=== PATIENT | male | born 1960 | race Caucasian/White ===

== ENCOUNTER → 2018-07-23 | Outpatient (CLI) | payer BC ==
--- NOTE | 2018-07-23 13:21 | US ---
EXAMINATION TYPE: US venous doppler duplex LE RT DATE OF EXAM: 07/23/2018 12:24 PM COMPARISON: NONE CLINICAL HISTORY: I80.9 phlebitis , M25.461 Effusion, right knee. Pt states recent fluid removal and Cortisone shot in right knee/ right leg pain SIDE PERFORMED: Right TECHNIQUE: The lower extremity deep venous system is examined utilizing real time linear array sonog louise with graded compression, doppler sonography and color-flow sonography. VESSELS IMAGED: External Iliac Vein (EIV) Common Femoral Vein Deep Femoral Vein Greater Saphenous Vein * Femoral Vein Popliteal Vein Small Saphenous Vein * Proximal Calf Veins (* superficial vessels) Right Leg: Negative for DVT Results called to Marcella at [facility] at time of exam Grayscale, color doppler, spectral doppler imaging performed of the deep veins of the right lower ext remity. There is normal flow, compressibility, vascular waveforms. IMPRESSION: No ultrasound evidence for acute DVT in the right lower extremity.
== END ==
LOC: RADUSWWP 12:03
PROVIDERS: ATTEND Orthopaedic Surgery
DX: M25.561 Pain in right knee (principal)

== ENCOUNTER 2018-10-25 11:09 | Inpatient (IN) | payer BC ==
[2018-10-25] MEDS ORDERED: ASPIRIN 81 MG PO STA (11:27)
--- NOTE | 2018-10-25 11:30 | ED ---
General Adult HPI - General Chief complaint: Shortness of Breath Stated complaint: Hx BRONCHITIS NOT GETTING BETTER Time Seen by Provider: 10/25/18 11:19 Source: patient, family Mode of arrival: ambulatory Limitations: no limitations - History of Present Illness Initial comments: Patient is a 58-year-old male with a history of high blood pressure and high cholesterol who presents with a chief complaint of shortness of breath. This been going on for 1 week. The patient says he has been evaluated multiple times at urgent care, diagnosed with bronchitis, given multiple rounds beta blockers for tachycardia. Patient states the symptoms are not improving despite treatment. He states he is exertionally short of breath, he states he would not be able to walk up a flight of stairs while having her take a break. There are no alleviating factors. Timing is constant. He does admits to chest discomfort with deep breathing - Related Data Home Medications Medication Instructions Recorded Confirmed Levofloxacin [Levaquin] 500 mg PO DAILY 10/25/18 10/25/18 Lisinopril-Hctz 10-12.5 mg 1 tab PO DAILY 10/25/18 10/25/18 [Zestoretic 10-12.5] Metoprolol Succinate (ER) [Toprol 50 mg PO DAILY 10/25/18 10/25/18 Xl] guaiFENesin-DM 600/30MG [Mucinex 1 tab PO Q12HR PRN 10/25/18 10/25/18 Dm] methylPREDNISolone Dose Pack See Taper PO DAILY 10/25/18 10/25/18 [Medrol Dose Pack] Allergies Allergy/AdvReac Type Severity Reaction Status Date / Time Penicillins Allergy Unknown Verified 10/25/18 11:34 Review of Systems ROS Statement: Those systems with pertinent positive or pertinent negative responses have been documented in the HPI. ROS Other: All systems not noted in ROS Statement are negative. Respiratory: Reports: dyspnea Cardiovascular: Reports: dyspnea on exertion Past Medical History Past Medical History: Hyperlipidemia, Hypertension History of Any Multi-Drug Resistant Organisms: None Reported Past Surgical History: Hernia Repair Past Psychological History: No Psychological Hx Reported Smoking Status: Former smoker Past Alcohol Use History: Daily Past Drug Use History: None Reported General Exam Limitations: no limitations General appearance: alert, in no apparent distress Head exam: Present: atraumatic, normocephalic Eye exam: Present: normal appearance, PERRL ENT exam: Present: normal exam Neck exam: Present: normal inspection Respiratory exam: Present: normal lung sounds bilaterally. Absent: respiratory distress, wheezes Cardiovascular Exam: Present: normal rhythm, tachycardia GI/Abdominal exam: Present: soft. Absent: distended, tenderness Rectal exam: Present: deferred Extremities exam: Present: normal inspection. 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 On initial evaluation, vitals showed tachycardia but otherwise stable. Patient is in no acute distress. He'll be evaluated basic labs including cardiac enzymes, EKG, computed tomography scan of the chest to rule out pulmonary embolism. Patient placed on 2 L of oxygen for comfort, he was given an aspirin. EKG performed at 1137 shows sinus tachycardia with a rate of 130 bpm, there is a right bundle branch block present, segments are otherwise within normal limits, no acute findings of ischemia present. No previous EKG to compare to. 12:38 PM Lab evaluation this patient is remarkable for a potassium of 5.5, no EKG T wave abnormalities identified. BNP is elevated over 5000, initial troponin is negative. Currently pending CT evaluation of the chest for PE. Remains tachycardic on reevaluation. 12:52 PM Computed tomography scan does not show any evidence of pulmonary embolism. I reevaluation, the patient still tachycardic but remained stable. At this time, he'll be started on Cardizem for rate control. He'll be admitted for further cardiac evaluation. Results discussed with him and his , they are agreeable with the care plan. Case discussed with Dr. Ramos excepts admission with consult to cardiology. Leonardo' Criteria for Pulmonary Embolism from [email or web address] on 10/25/2018 All calculations should be rechecked by clinician prior to use RESULT SUMMARY: 4.5 points Moderate risk group: 16.2% chance of PE in an ED population. INPUTS: Clinical signs and symptoms of DVT > 0 = No PE is #1 diagnosis OR equally likely > 3 = Yes Heart rate > 100 > 1.5 = Yes Immobilization at least 3 days OR surgery in the previous 4 weeks > 0 = No Previous, objectively diagnosed PE or DVT > 0 = No Hemoptysis > 0 = No Malignancy w/ treatment within 6 months or palliative > 0 = No - Lab Data Result diagrams: 10/25/18 11:39 10/25/18 11:39 Lab Results 10/25/18 10/25/18 10/25/18 Range/Units 11:39 11:39 11:39 WBC 10.6 (3.8-10.6) k/uL RBC 4.46 (4.30-5.90) m/uL Hgb 14.4 (13.0-17.5) gm/dL Hct 43.7 (39.0-53.0) % MCV 98.0 (80.0-100.0) fL MCH 32.2 (25.0-35.0) pg MCHC 32.9 (31.0-37.0) g/dL RDW 14.7 (11.5-15.5) % Plt Count 205 (150-450) k/uL Neutrophils % 75 % Lymphocytes % 16 % Monocytes % 6 % Eosinophils % 2 % Basophils % 0 % Neutrophils # 7.9 H (1.3-7.7) k/uL Lymphocytes # 1.7 (1.0-4.8) k/uL Monocytes # 0.6 (0-1.0) k/uL Eosinophils # 0.2 (0-0.7) k/uL Basophils # 0.0 (0-0.2) k/uL PT (9.0-12.0) sec INR (<1.2) Sodium 140 (137-145) mmol/L Potassium 5.5 H (3.5-5.1) mmol/L Chloride 110 H (98-107) mmol/L Carbon Dioxide 20 L (22-30) mmol/L Anion Gap 10 mmol/L BUN 35 H (9-20) mg/dL Creatinine 0.87 (0.66-1.25) mg/dL Est GFR (CKD-EPI)AfAm >90 (>60 ml/min/1.73 sqM) Est GFR (CKD-EPI)NonAf >90 (>60 ml/min/1.73 sqM) Glucose 135 H (74-99) mg/dL Calcium 9.0 (8.4-10.2) mg/dL Troponin I (0.000-0.034) ng/mL NT-Pro-B Natriuret Pep pg/mL Blood Type O Positive Blood Type Recheck CABO Indicated Antibody Screen NEGATIVE Spec Expiration Date 10/28/2018 - 233810/25/18 10/25/18 10/25/18 Range/Units 11:39 11:39 11:39 WBC (3.8-10.6) k/uL RBC (4.30-5.90) m/uL Hgb (13.0-17.5) gm/dL Hct (39.0-53.0) % MCV (80.0-100.0) fL MCH (25.0-35.0) pg MCHC (31.0-37.0) g/dL RDW (11.5-15.5) % Plt Count (150-450) k/uL Neutrophils % % Lymphocytes % % Monocytes % % Eosinophils % % Basophils % % Neutrophils # (1.3-7.7) k/uL Lymphocytes # (1.0-4.8) k/uL Monocytes # (0-1.0) k/uL Eosinophils # (0-0.7) k/uL Basophils # (0-0.2) k/uL PT 12.9 H (9.0-12.0) sec INR 1.3 H (<1.2) Sodium (137-145) mmol/L Potassium (3.5-5.1) mmol/L Chloride (98-107) mmol/L Carbon Dioxide (22-30) mmol/L Anion Gap mmol/L BUN (9-20) mg/dL Creatinine (0.66-1.25) mg/dL Est GFR (CKD-EPI)AfAm (>60 ml/min/1.73 sqM) Est GFR (CKD-EPI)NonAf (>60 ml/min/1.73 sqM) Glucose (74-99) mg/dL Calcium (8.4-10.2) mg/dL Troponin I 0.027 (0.000-0.034) ng/mL NT-Pro-B Natriuret Pep 5530 pg/mL Blood Type Blood Type Recheck Antibody Screen Spec Expiration Date Disposition Clinical Impression: Dyspnea on exertion, Elevated brain natriuretic peptide (BNP) level, Sinus tachycardia, LBBB (left bundle branch block) Disposition: ADMITTED IP TO THIS HOSP Condition: Fair Is patient prescribed a controlled substance at d/c from ED?: No Referrals: Ozzie Corbin DO [Primary Care Provider] - 1-2 days Decision to Admit Reason: Admit from EC - Out of Hospital Transfer - Req. Specs Out of Hospital Transfer - Requested Specifics: Telemetry Unit
[2018-10-25 11:49] LABS: Basophils % (A) 0 %; Eosinophils # (A) 0.2 k/uL (0-0.7); Eosinophils % (A) 2 %; HCT 43.7 % (39.0-53.0); HGB 14.4 gm/dL (13.0-17.5); Lymphocytes # (A) 1.7 k/uL (1.0-4.8); Lymphocytes % (A) 16 %; MCH 32.2 pg (25.0-35.0); MCHC 32.9 g/dL (31.0-37.0); Mean Platelet Volume 9.2; Monocytes # (A) 0.6 k/uL (0-1.0); Monocytes % (A) 6 %; Neutrophils # (A) 7.9 k/uL (1.3-7.7); Neutrophils % (A) 75 %; Platelet Count 205 k/uL (150-450); RBC 4.46 m/uL (4.30-5.90); RDW 14.7 % (11.5-15.5); WBC 10.6 k/uL (3.8-10.6)
[2018-10-25 11:54] LABS: INR 1.3 (<1.2); Prothrombin Time 12.9 sec (9.0-12.0)
[2018-10-25 11:56] LABS: African American GFR (CKD) >90 (>60 ml/min/1.73 sqM); Anion Gap 10 mmol/L; Blood Urea Nitrogen 35 mg/dL (9-20); Carbon Dioxide 20 mmol/L (22-30); Chloride 110 mmol/L (98-107); Glucose 135 mg/dL (74-99); Potassium 5.5 mmol/L (3.5-5.1); Sodium 140 mmol/L (137-145)
--- NOTE | 2018-10-25 12:42 | CT ---
EXAMINATION TYPE: CT chest angio for PE DATE OF EXAM: 10/25/2018 COMPARISON: None HISTORY: SOB CT DLP: 609.5 mGycm Automated exposure control for dose reduction was used. CONTRAST: CT Chest for pulmonary embolism performed with with IV Contrast, patient injected with 100 mL of Isov ue 300. FINDINGS: LUNGS: Groundglass subsegmental changes bilaterally most typical of atelectasis. No focal pneumonia o r overt failure. No pleural effusion. MEDIASTINUM: No diagnostic evidence of pulmonary. Atherosclerotic change aorta. Cardiomegaly and smal l pericardial effusion. Coronary artery mild calcification seen proximal ascending aorta measures 4.4 cm compatible with mild aneurysmal dilation. OTHER: Hypertrophic change of the vertebral column. IMPRESSION: 1. Cardiomegaly with no CT evidence of pulmonary a most. 2 groundglass subsegmental changes correlate for atelectasis. 3. Small pericardial effusion. 4. Coronary artery and aortic calcification. Ascending aorta measures 4.4 cm compatible with mild ane urysmal dilation.
[2018-10-25] MEDS ORDERED: DILTIAZEM 5 MG/ML 5 ML VIAL IVP STA (12:50)
[2018-10-25] MEDS ORDERED: NALOXONE 0.4 MG/ML 1 ML VIAL IV PRN (12:59)
[2018-10-25] MEDS ORDERED: DILTIAZEM 125 MG in SODIUM CHLORIDE 0.9% 100 ML IV SCH ×2 (13:00→17:00)
[2018-10-25] MEDS ORDERED: HEPARIN SODIUM,PORCINE 5,000 UNIT/ML 1 ML VIAL IV ONE (14:17)
[2018-10-25] MEDS ORDERED: HEPARIN SODIUM,PORCINE 5,000 UNIT/ML 1 ML VIAL IV PRN (14:17)
[2018-10-25] MEDS: HEPARIN SOD,PORK IN 0.45% NACL 25,000 UNIT in 0.45% NACL 1 250ML.BAG IV SCH (14:51)
[2018-10-25] MEDS ORDERED: SODIUM CHLORIDE 0.9% 1,000 ML IV SCH (15:00)
--- NOTE | 2018-10-25 15:20 | P.HPIM ---
History of Present Illness H&P Date: 10/25/18 58 years old male with past medical history of hypertension, hyperlipidemia comes in with worsening shortness of breath associated with night sweats and palpitations. Patient states he was feeling unwell for the past 1 month with worsening shortness of breath in the past 1 week. He has been to the urgent care twice in the past 3 days and has been treated for bronchitis with a Z-Terry and Medrol Dosepak. Patient was noted to be in sinus tachycardia. Metoprolol was initiated by urgent care which was increased to 100 mg twice a day yesterday with no improvement. Patient is unable to do his daily activities due to increasing shortness of breath at rest. He endorses orthopnea and no cturnal postural dyspnea. Patient denies any chest pain or swelling in the lower extremity edema. Evaluation in the ER patient was tachycardic in the 130s EKG suggested regular tachycardia with bifascicular block and T-wave abnormality. Repeat EKG suggested atrial flutter with 3 :1 conduction block. CBC was unremarkable BMP suggest potassium of 5.5 chloride 110 bicarb 20 BUN of 35. Creatinine 0.87 glucose 135. CTA was done to rule out pulmonary embolism is negative for PE. 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 Patient's presentation is concerning for myopericarditis from possible viral source. We'll get ESR, CRP repeat troponin and a stat echocardiogram. Magnesium will be drawn. Repeat BMP in the evening. Continue IV fluids at 1 25 mL per hour. We will obtain a comprehensive viral panel. Continue telemetry to observe for any irregular rhythm with a concern for V. tach. Review of Systems Constitutional: Denies chills, Denies fever, endorses lethargy Denies poor appetite,, Denies weight loss Eyes: denies decreased vision, denies diplopia, denies discharge, denies pain Ears: deny: decreased hearing Ears, nose, mouth and throat: Denies dental pain, Denies headache, Denies nasal discharge, Denies nose pain Cardiovascular: Denies chest pain, endorses decreased exercise tolerance, Denies edema, Denies high blood pressure, endorses irregular heart beat, endorses palpitations, endorses paroxysmal nocturnal dyspnea, endorses rapid heart beat, endorses shortness of breath Respiratory: Denies congestion, endorses cough, Denies cough with sputum, Denies dyspnea, Denies home oxygen, Denies wheezing Gastrointestinal: Denies abdominal pain, Denies change in bowel habits, Denies coffee ground emesis, Denies early satiety, Denies excessive gas, Denies heartburn, Denies hematemesis, Denies hematochezia, Denies loss of appetite, Denies nausea, Denies vomiting Genitourinary: Denies dysuria, Denies flank pain, Denies kidney stones, Denies menorrhagia, Denies urgency, Denies urinary frequency Musculoskeletal: Denies gait dysfunction, Denies limitation of motion, Denies morning stiffness, Denies muscle cramps Integumentary: Denies rash, Denies wounds, Denies brittle nails, Denies change in hair/nails, Denies darkening of skin Neurological: Denies balance difficulties, Denies change in speech, Denies double vision, Denies gait dysfunction, Denies loss of vision, Denies motor disturbance, Denies numbness, Denies paralysis, Denies paresthesias, Denies seizures Psychiatric: Denies anxiety, Denies depression Endocrine: Denies excessive sweating, Denies excessive thirst, Denies high blood sugars, Denies palpitations Hematologic/Lymphatic: Denies easy bruising, Denies lymphadenopathy Past Medical History Past Medical History: Hyperlipidemia, Hypertension History of Any Multi-Drug Resistant Organisms: None Reported Past Surgical History: Hernia Repair Past Psychological History: No Psychological Hx Reported Smoking Status: Former smoker Past Alcohol Use History: Daily, Heavy (drinksa pint a day, last drink october 22 ) Past Drug Use History: None Reported - Past Family History Father History Unknown: Yes Mother History Unknown: Yes Medications and Allergies Home Medications Medication Instructions Recorded Confirmed Type Levofloxacin [Levaquin] 500 mg PO DAILY 10/25/18 10/25/18 History Lisinopril-Hctz 10-12.5 mg 1 tab PO DAILY 10/25/18 10/25/18 History [Zestoretic 10-12.5] Metoprolol Succinate (ER) [Toprol 50 mg PO DAILY 10/25/18 10/25/18 History Xl] guaiFENesin-DM 600/30MG [Mucinex 1 tab PO Q12HR PRN 10/25/18 10/25/18 History Dm] methylPREDNISolone Dose Pack See Taper PO DAILY 10/25/18 10/25/18 History [Medrol Dose Pack] Allergies Allergy/AdvReac Type Severity Reaction Status Date / Time Penicillins Allergy Unknown Verified 10/25/18 11:34 Physical Exam Vitals: Vital Signs Temp Pulse Pulse Resp BP Pulse Ox 10/25/18 13:49 98.1 F 107 H 20 97/70 98 10/25/18 13:15 115 H 93/70 98 10/25/18 13:06 131 H 18 104/81 97 10/25/18 11:38 130 H 10/25/18 11:10 97.7 F 130 H 20 104/74 97 Intake and Output 10/25/18 10/25/18 10/25/18 06:59 14:59 22:59 Other: Weight 118.705 kg - Constitutional General appearance: cooperative, no acute distress, obese - EENT Eyes: anicteric sclerae, PERRLA, normal appearance ENT: hearing grossly normal - Neck Neck: no lymphadenopathy, normal ROM, no other, no rigidity, no stridor, no thyromegaly - Respiratory Respiratory: Crackles heard on the right base, otherwise clear to auscultate no rails no wheezing heard - Cardiovascular Rhythm: Tachycardic Heart sounds: normal: S1, S2 Abnormal Heart Sounds: no systolic murmur, no diastolic murmur, no rub, no S3 Gallop, no S4 Gallop, no click, no other - Gastrointestinal General gastrointestinal: normal bowel sounds, soft - Integumentary Integumentary: no rash - Neurologic Neurologic: CNII-XII intact - Musculoskeletal Musculoskeletal: gait normal, strength equal bilaterally - Psychiatric Psychiatric: A&O x's 3, appropriate affect Results CBC & Chem 7: 10/26/18 02:57 10/26/18 02:57 Labs: Abnormal Lab Results - Last 24 Hours (Table) 10/25/18 10/25/18 10/25/18 Range/Units 11:39 11:39 11:39 Neutrophils # 7.9 H (1.3-7.7) k/uL PT 12.9 H (9.0-12.0) sec INR 1.3 H (<1.2) Potassium 5.5 H (3.5-5.1) mmol/L Chloride 110 H (98-107) mmol/L Carbon Dioxide 20 L (22-30) mmol/L BUN 35 H (9-20) mg/dL Glucose 135 H (74-99) mg/dL Thrombosis Risk Factor Assmnt - DVT/VTE Prophylaxis DVT/VTE Prophylaxis: Pharmacologic Prophylaxis ordered Assessment and Plan Plan: #1 atrial flutter. Cardizem 10 mg bolus given followed by Cardizem drip at 5 mg per hour. Stat echocardiogram ordered. CT concerning for cardiomegaly. Patient has failed on metoprolol as outpatient. Would consider starting patient on either amiodarone or digoxin if patient drops his blood pressure. on heparin Cardiology consult. Concern for permyoicarditis based on patient's symptoms. Avoid QT prolonging medications. Troponin every 6 hours 3 complains of viral panel ordered #2 Acute SOB likley sec to cardiomyopath- echo ordered, differential myocarditis vs alcohol induced DCM. ESR, CRP, viral panel pending, trop pending, BNP elevaed, not in volume overload, hold lasix, possible need of cardiac MRI if suspected myocarditis, #2 acute bronchitis continue patient on Solu-Medrol IV 60 every 8 hours. #3 hypertension continue lisinopril HCTZ continue Cardizem drip #4 DVT prophylaxis with heparin drip #5 code status full code
[2018-10-25] MEDS ORDERED: DIGOXIN 250 MCG TAB PO SCH (16:45)
[2018-10-25] MEDS ORDERED: DIGOXIN 250 MCG/ML 2 ML AMP IVP STA (16:46)
[2018-10-25] MEDS ORDERED: DILTIAZEM DRIP BOLUS FROM BAG 1 MG SOLN IV ONE (16:49)
[2018-10-25 16:52] LABS: C Reactive Protein 19.6 mg/L (<10.0)
[2018-10-25] MEDS ORDERED: DEXTROSE 5% IN WATER 100 ML with AMIODARONE 150 MG IV ONE (17:42)
[2018-10-25] MEDS ORDERED: AMIODARONE 360 MG in DEXTROSE 5% IN WATER 200 ML IV ONE ×2 (17:42)
[2018-10-25 18:47] VITALS: BMI 36.3
[2018-10-25] MEDS: SODIUM CHLORIDE 0.9% 1,000 ML IV SCH (19:57)
[2018-10-25] MEDS ORDERED: ALPRAZolam 0.25 MG TAB PO STA (20:18)
[2018-10-25] MEDS ORDERED: DIGOXIN 250 MCG/ML 2 ML AMP IVP ONE ×2 (23:00→23:25)
[2018-10-26] MEDS: AMIODARONE 300 MG in DEXTROSE 5% IN WATER 250 ML IV SCH ×4 (00:08→10:30)
[2018-10-26 03:20] LABS: Basophils % (A) 0 %; Eosinophils # (A) 0.2 k/uL (0-0.7); Eosinophils % (A) 2 %; HCT 40.1 % (39.0-53.0); HGB 12.9 gm/dL (13.0-17.5); Hypochromasia Slight; Lymphocytes # (A) 1.4 k/uL (1.0-4.8); Lymphocytes % (A) 16 %; MCH 33.2 pg (25.0-35.0); MCHC 32.3 g/dL (31.0-37.0); MCV 102.8 fL (80.0-100.0); Macrocytosis Slight; Mean Platelet Volume 8.6; Monocytes # (A) 0.6 k/uL (0-1.0); Monocytes % (A) 8 %; Neutrophils # (A) 6.1 k/uL (1.3-7.7); Neutrophils % (A) 72 %; Platelet Count 140 k/uL (150-450); RDW 14.3 % (11.5-15.5); WBC 8.5 k/uL (3.8-10.6)
[2018-10-26 03:31] LABS: African American GFR (CKD) >90 (>60 ml/min/1.73 sqM); Anion Gap 7 mmol/L; Blood Urea Nitrogen 34 mg/dL (9-20); Calcium 8.7 mg/dL (8.4-10.2); Carbon Dioxide 23 mmol/L (22-30); Chloride 107 mmol/L (98-107); Glucose 119 mg/dL (74-99); Potassium 4.4 mmol/L (3.5-5.1); Sodium 137 mmol/L (137-145)
[2018-10-26] MEDS: LISINOPRIL-HCTZ 10-12.5 MG 1 EACH TAB PO SCH (08:12)
[2018-10-26] MEDS: HEPARIN SOD,PORK IN 0.45% NACL 25,000 UNIT in 0.45% NACL 1 250ML.BAG IV SCH (08:12)
--- NOTE | 2018-10-26 08:13 | P.CRDCN ---
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 For the past one week or greater, he has been experiencing shortness of breath, initially exertional, subsequently short of breath most of the time. He was treated as an outpatient for possible bronchitis with no relief of symptoms he also states at night when he lies down in bed he feels his heart racing fast. His initial EKG on presentation here showed atrial flutter with a right bundle branch block pattern and rapid ventricular response. Subsequent EKG continued to show atrial flutter with a variable AV block. CTA of the chest was performed which did not reveal any evidence of pulmonary embolism, small pericardial effusion noted. Ascending aorta measures 4.4 cm. No chest x-ray performed. Blood pressure on arrival here 105/75 with a heart rate of 1:30, 97% on room air. Blood pressure this morning 106/68 with a heart rate of 108, 96% on 2 L of oxygen. Patient was initially started on Cardizem in the emergency room but became quite hypotensive, the Cardizem was discontinued and patient was initiated on IV amiodarone which she continues to be on at this time. Patient is also on IV heparin at this time. Laboratory data was reviewed, white blood cell count 8.5, hemoglobin 12.9, platelet count 140. Laboratory data on admission here, sodium 140, potassium 5.5, BUN 35 and creatinine 0.8. BNP level 5530, magnesium 2.0, troponin 0.0-7. Influenza A and B were negative. The patient, he did have a recent upper respiratory infection. Past Medical History Past Medical History: Hyperlipidemia, Hypertension History of Any Multi-Drug Resistant Organisms: None Reported Past Surgical History: Hernia Repair Past Psychological History: No Psychological Hx Reported Smoking Status: Former smoker Past Alcohol Use History: Daily Past Drug Use History: None Reported - Past Family History Father History Unknown: Yes Mother History Unknown: Yes Medications and Allergies Home Medications Medication Instructions Recorded Confirmed Type Levofloxacin [Levaquin] 500 mg PO DAILY 10/25/18 10/25/18 History Lisinopril-Hctz 10-12.5 mg 1 tab PO DAILY 10/25/18 10/25/18 History [Zestoretic 10-12.5] Metoprolol Succinate (ER) [Toprol 50 mg PO DAILY 10/25/18 10/25/18 History Xl] guaiFENesin-DM 600/30MG [Mucinex 1 tab PO Q12HR PRN 10/25/18 10/25/18 History Dm] methylPREDNISolone Dose Pack See Taper PO DAILY 10/25/18 10/25/18 History [Medrol Dose Pack] Allergies Allergy/AdvReac Type Severity Reaction Status Date / Time Penicillins Allergy Unknown Verified 10/25/18 11:34 Physical Exam Vitals: Vital Signs Temp Pulse Pulse Pulse Resp BP BP 10/26/18 07:56 96.3 F L 104 H 20 106/69 10/26/18 04:00 97.7 F 110 H 20 107/78 10/26/18 00:00 91 20 96/68 10/25/18 20:00 98.4 F 89 24 90/55 10/25/18 18:50 112 H 107/77 10/25/18 18:45 125 H 118/78 10/25/18 18:40 129 H 108/76 10/25/18 18:35 131 H 20 114/82 10/25/18 16:00 98.2 F 130 H 20 107/78 10/25/18 14:10 98.2 F 130 H 20 84/70 10/25/18 13:49 98.1 F 107 H 20 97/70 10/25/18 13:15 115 H 93/70 10/25/18 13:06 131 H 18 104/81 10/25/18 11:38 130 H 10/25/18 11:10 97.7 F 130 H 20 104/74 Pulse Ox 10/26/18 07:56 96 10/26/18 04:00 97 10/26/18 00:00 92 L 10/25/18 20:00 96 10/25/18 18:50 96 10/25/18 18:45 94 L 10/25/18 18:40 95 10/25/18 18:35 96 10/25/18 16:00 94 L 10/25/18 14:10 94 L 10/25/18 13:49 98 10/25/18 13:15 98 10/25/18 13:06 97 10/25/18 11:38 10/25/18 11:10 97 Intake and Output 10/25/18 10/26/18 10/26/18 22:59 06:59 14:59 Intake Total 840 157.671 Output Total 200 Balance 640 157.671 Intake: IV 40 20 Invasive Line 2 40 20 Intake, IV Titration 137.671 Amount Heparin Sod,Pork in 0.45% 137.671 NaCl 25,000 unit In 0.45 % NaCl 1 250ml.bag @ 8.4 UNITS/KG/HR 9.971 mls/hr IV .Q24H [facility] Rx#: [id number] Oral 800 Output: Urine 200 Other: Voiding Method Urinal Urinal # Voids 2 Weight 120.2 kg PHYSICAL EXAMINATION: GENERAL: 58-year-old gentleman in no acute distress at the time of my examination HEENT: Head is atraumatic, normocephalic. Pupils equal, round. Sclera anicteric. Conjunctiva are clear. Mucous membranes of the mouth are moist. Neck is supple. There is elevated jugular venous pressure. No carotid bruit is heard. HEART EXAMINATION: Heart S1 and S2 irregularly irregular CHEST EXAMINATION: Lungs reveal diminished air entry to bilateral bases ABDOMEN: Soft, nontender. Bowel sounds are heard. No organomegaly noted. EXTREMITIES: 2+ peripheral pulses with no evidence of peripheral edema and no calf tenderness noted. NEUROLOGIC patient is awake, alert and oriented 3 . . Results 10/26/18 02:57 10/26/18 02:57 Cardiac Enzymes 10/25/18 Range/Units 11:39 Troponin I 0.027 (0.000-0.034) ng/mL Coagulation 10/25/18 10/25/18 10/26/18 Range/Units 11:39 21:08 02:57 PT 12.9 H (9.0-12.0) sec APTT 28.5 30.4 H (22.0-30.0) sec CBC 10/25/18 10/26/18 Range/Units 11:39 02:57 WBC 10.6 8.5 (3.8-10.6) k/uL RBC 4.46 3.90 L (4.30-5.90) m/uL Hgb 14.4 12.9 L (13.0-17.5) gm/dL Hct 43.7 40.1 (39.0-53.0) % Plt Count 205 140 L (150-450) k/uL Comprehensive Metabolic Panel 10/25/18 10/26/18 Range/Units 11:39 02:57 Sodium 140 137 (137-145) mmol/L Potassium 5.5 H 4.4 (3.5-5.1) mmol/L Chloride 110 H 107 (98-107) mmol/L Carbon Dioxide 20 L 23 (22-30) mmol/L BUN 35 H 34 H (9-20) mg/dL Creatinine 0.87 0.96 (0.66-1.25) mg/dL Glucose 135 H 119 H (74-99) mg/dL Calcium 9.0 8.7 (8.4-10.2) mg/dL Current Medications Generic Name Dose Route Start Last Admin Trade Name Freq PRN Reason Stop Dose Admin Lisinopril/HCTZ 1 each 10/26/18 09:00 Zestoretic 10-12.5 PO DAILY THOMAS Heparin Sodium (Porcine) 0 unit 10/25/18 14:17 Heparin IV PER PROTOCOL PRN Low PTT Protocol Heparin Sodium/Sodium Chloride 250 mls @ 9.971 mls/hr 10/25/18 14:30 10/26/18 03:18 25,000 unit/ Sodium Chloride IV 14.4 units/kg/hr .Q24H [facility] 17.094 mls/hr Titration Protocol 8.4 UNITS/KG/HR Sodium Chloride 1,000 mls @ 20 mls/hr 10/25/18 19:00 10/25/18 19:57 Saline 0.9% IV 20 mls/hr .Q24H [facility] Administration Amiodarone HCl 300 mg/ 250 mls @ 25 mls/hr 10/26/18 00:00 10/26/18 00:08 Dextrose/Water IV 10/26/18 17:59 0.5 mg/min .Q10H [facility] 25 mls/hr Administration Protocol 0.5 MG/MIN Naloxone HCl 0.2 mg 10/25/18 12:59 Narcan IV Q2M PRN Opioid Reversal Intake and Output 10/25/18 10/26/18 10/26/18 22:59 06:59 14:59 Intake Total 840 157.671 Output Total 200 Balance 640 157.671 Intake: IV 40 20 Invasive Line 2 40 20 Intake, IV Titration 137.671 Amount Heparin Sod,Pork in 0.45% 137.671 NaCl 25,000 unit In 0.45 % NaCl 1 250ml.bag @ 8.4 UNITS/KG/HR 9.971 mls/hr IV .Q24H [facility] Rx#: [id number] Oral 800 Output: Urine 200 Other: Voiding Method Urinal Urinal # Voids 2 Weight 120.2 kg 10/26/18 02:57 10/26/18 02:57 EKG Interpretations (text) EKG shows atrial flutter with rapid ventricular response Assessment and Plan Plan: Assessment and plan #1 symptoms of shortness of breath, likely secondary to congestive heart failure, LV function unknown, heart failure could be secondary to arrhythmia #2 atrial flutter, atypical, rapid ventricular response #3 hypertension #4 hyperlipidemia #5 excessive alcohol use, patient drinks at least half to 1 pint of alcohol daily and has done so for the past 20 years #6 small pericardial effusion as documented on CAT scan, sed rate was normal, C- reactive protein 19.6 Plan We will obtain an echocardiogram with Doppler study, as well as a TSH level. Continue IV amiodarone and IV heparin. We will give the patient a dose of IV Lasix. I did educate the patient strongly regarding the importance of EtOH cessation, also explained the need for anticoagulation for stroke prevention. Further recommendations to follow. DNP note has been reviewed, I agree with a documented findings and plan of care. Patient was seen and examined.
[2018-10-26] MEDS: HYDROcodone/APAP 10-325MG 1 EACH TAB PO PRN ×2 (08:51→16:49)
[2018-10-26] MEDS ORDERED: THIAMINE 100 MG/ML 2 ML VIAL IM STA (08:58)
[2018-10-26] MEDS ORDERED: LORazepam 2 MG/ML INJ IV PRN ×3 (08:58)
--- NOTE | 2018-10-26 10:05 | ECHOF ---
Referral Reason:Eval. LV fxn, small pericardial effusion MEASUREMENTS -------- HEIGHT: 180.3 cm WEIGHT: 118.4 kg BP: 97/70 RVIDd: 4.0 cm (< 3.3) IVSd: 1.3 cm (0.6 - 1.1) LVIDd: 5.7 cm (3.9 - 5.3) LVPWd: 1.5 cm (0.6 - 1.1) IVSs: 1.5 cm LVIDs: 5.2 cm LVPWs: 1.7 cm LAESV Index (A-L): 38.75 ml/m Ao Diam: 2.9 cm (2.0 - 3.7) AV Cusp: 2.1 cm (1.5 - 2.6) LA Diam: 4.8 cm (2.7 - 3.8) RAP: 20.00 mmHg RVSP: 37.05 mmHg FINDINGS -------- Resting tachycardia (HR>100bpm). This was a technically difficult study with suboptimal apical views. The left ventricle is mildly dilated. There is moderate concentric left ventricular hypertrophy. There is severe global hypokinesis of LV . Overall left ventricular systolic function is severely i mpaired with, an EF < 20%. Mitral Doppler inflow pattern suggests diastolic filling abnormality {E/ E'}. The right ventricle is moderately enlarged. LA is moderately dilated 34-39 ml/m2 RA appears enlarged. Interatrial and interventricular septum intact. The aortic valve was not well visualized. There is no evidence of aortic regurgitation. There is no evidence of aortic stenosis. Tvlfofrx-uv-fudtvm mitral regurgitation is present. Moderate tricuspid regurgitation present. There is mild pulmonary hypertension. The right ventric ular systolic pressure, as measured by Doppler, is 37.05mmHg. There is no pulmonic regurgitation present. The aortic root size is normal. The inferior vena cava is dilated with no significant inspiratory collapse which is consistent estima rossi right atrial pressure of >20 mmHg. There is a trivial pericardial effusion present. Lumason used CONCLUSIONS -------- 1. Resting tachycardia (HR>100bpm). 2. This was a technically difficult study with suboptimal apical views. 3. The left ventricle is mildly dilated. 4. There is moderate concentric left ventricular hypertrophy. 5. There is severe global hypokinesis of LV . 6. Overall left ventricular systolic function is severely impaired with, an EF < 20%. 7. Mitral Doppler inflow pattern suggest diastolic filling abnormality {E/E'}. 8. The right ventricle is moderately enlarged. 9. LA is moderately dilated 34-39 ml/m2 10. RA appears enlarged. 11. Lumason used 12. Interatrial and interventricular septum intact. 13. The aortic valve was not well visualized. 14. There is no evidence of aortic regurgitation. 15. There is no evidence of aortic stenosis. 16. Jthsroov-cy-kblyfc mitral regurgitation is present. 17. Moderate tricuspid regurgitation present. 18. There is mild pulmonary hypertension. 19. The right ventricular systolic pressure, as measured by Doppler, is 37.05mmHg. 20. There is no pulmonic regurgitation present. 21. The aortic root size is normal. 22. The inferior vena cava is dilated with no significant inspiratory collapse which is consistent es timated right atrial pressure of >20 mmHg. 23. There is a trivial pericardial effusion present. SEAMING INSPECTOR: Kathrine Dove RDCS
[2018-10-26] MEDS: MULTIVITAMINS, THERA 1 EACH TAB PO SCH (10:32)
[2018-10-26] MEDS: APIXABAN 5 MG TAB PO SCH ×2 (10:32→21:03)
[2018-10-26] MEDS ORDERED: FUROSEMIDE 10 MG/ML 4 ML VIAL IV STA (11:22)
--- NOTE | 2018-10-26 13:15 | P.PN ---
Subjective Progress Note Date: 10/26/18 58 years old male with past medical history of hypertension, hyperlipidemia comes in with worsening shortness of breath associated with night sweats and palpitations. Patient states he was feeling unwell for the past 1 month with worsening shortness of breath in the past 1 week. He has been to the urgent care twice in the past 3 days and has been treated for bronchitis with a Z-Terry and Medrol Dosepak. Patient was noted to be in sinus tachycardia. Metoprolol was initiated by urgent care which was increased to 100 mg twice a day yesterday with no improvement. Patient is unable to do his daily activities due to increasing shortness of breath at rest. He endorses orthopnea and nocturnal postural dyspnea. Patient denies any chest pain or swelling in the lower extremity edema. Evaluation in the ER patient was tachycardic in the 130s EKG suggested regular tachycardia with bifascicular block and T-wave abnormality. Repeat EKG suggested atrial flutter with 3 :1 conduction block. CBC was unremarkable BMP suggest potassium of 5.5 chloride 110 bicarb 20 BUN of 35. Creatinine 0.87 g lucose 135. CTA was done to rule out pulmonary embolism is negative for PE. 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 Patient's presentation is concerning for myopericarditis from possible viral source. We'll get ESR, CRP repeat troponin and a stat echocardiogram. Magnesium will be drawn. Repeat BMP in the evening. Continue IV fluids at 1 25 mL per hour. We will obtain a comprehensive viral panel. Continue telemetry to observe for any irregular rhythm with a concern for V. tach. 10/26: Patient has had repeat episode of a flutter this morning when he got up to the bathroom. He is currently on IV amiodarone and IV heparin. Discussed with Dr. Sharpe and patient will be transitioned to eliquis and heparin drip discontinued. IV amiodarone to be transitioned to oral. He also may wish to pursue ECTOR and cardioversion. Patient will be started on the CIWA protocol with Ativan as he states he drinks a pint of Riki Villalobos plus more daily. His last alcohol intake was on October 22. He apparently has been a heavy drinker for more than 20 years. Patient has been afebrile, heart rate 104, blood pressure 106/69, pulse ox 96% on 2 L nasal cannula. Repeat troponin was 0.027, TSH 2.030. Influenza testing was negative. Echocardiogram reported EF of less than 20%, moderate to severe mitral regurgitation, moderate tricuspid regurgitation, mild pulmonary hypertension. Estimated right atrial pressure greater than 20 mmHg, trivial pericardial effusion. Objective - Vital Signs Vital signs: Vital Signs Temp 96.3 F L 10/26/18 07:56 Pulse 104 H 10/26/18 08:00 Resp 20 10/26/18 08:00 BP 106/69 10/26/18 07:56 Pulse Ox 96 10/26/18 07:56 Intake & Output 10/25/18 10/26/18 10/26/18 18:59 06:59 18:59 Intake Total 20 977.671 83.761 Output Total 200 Balance -180 977.671 83.761 Weight 118.705 kg 120.2 kg Intake: IV 20 40 Invasive Line 2 20 40 Intake, IV Titration 137.671 83.761 Amount Heparin Sod,Pork in 0.45% 137.671 83.761 NaCl 25,000 unit In 0.45 % NaCl 1 250ml.bag @ 8.4 UNITS/KG/HR 9.971 mls/hr IV .Q24H [facility] Rx#: [id number] Oral 800 Output: Urine 200 Other: Voiding Method Urinal Urinal # Voids 2 - Exam Review of Systems Constitutional: Denies chills, Denies fever, endorses lethargy Denies poor a ppetite,, Denies weight loss Eyes: denies decreased vision, denies diplopia, denies discharge, denies pain Ears: deny: decreased hearing Ears, nose, mouth and throat: Denies dental pain, Denies headache, Denies nasal discharge, Denies nose pain Cardiovascular: Denies chest pain, endorses decreased exercise tolerance, Denies edema, Denies high blood pressure, endorses irregular heart beat, endorses palpitations, endorses paroxysmal nocturnal dyspnea, endorses rapid heart beat, reports shortness of breath Respiratory: Denies congestion, endorses cough, Denies cough with sputum, Denies dyspnea, Denies home oxygen, Denies wheezing Gastrointestinal: Denies abdominal pain, Denies change in bowel habits, Denies coffee ground emesis, Denies early satiety, Denies excessive gas, Denies heartburn, Denies hematemesis, Denies hematochezia, Denies loss of appetite, Denies nausea, Denies vomiting Genitourinary: Denies dysuria, Denies flank pain, Denies kidney stones, Denies menorrhagia, Denies urgency, Denies urinary frequency Musculoskeletal: Denies gait dysfunction, Denies limitation of motion, Denies morning stiffness, Denies muscle cramps Integumentary: Denies rash, Denies wounds, Denies brittle nails, Denies change in hair/nails, Denies darkening of skin Neurological: Denies balance difficulties, Denies change in speech, Denies double vision, Denies gait dysfunction, Denies loss of vision, Denies motor disturbance, Denies numbness, Denies paralysis, Denies paresthesias, Denies seizures Psychiatric: Denies anxiety, Denies depression Endocrine: Denies excessive sweating, Denies excessive thirst, Denies high blood sugars, Denies palpitations Hematologic/Lymphatic: Denies easy bruising, Denies lymphadenopathy - Constitutional General appearance: cooperative, no acute distress, obese - EENT Eyes: anicteric sclerae, PERRLA, normal appearance ENT: hearing grossly normal - Neck Neck: no lymphadenopathy, normal ROM, no other, no rigidity, no stridor, no thyromegaly - Respiratory Respiratory: Crackles heard on the right base, otherwise clear to auscultate no rails no wheezing heard - Cardiovascular Rhythm: Tachycardic, mild, atrial flutter Heart sounds: normal: S1, S2 Abnormal Heart Sounds: no systolic murmur, no diastolic murmur, no rub, no S3 Gallop, no S4 Gallop, no click, no other - Gastrointestinal General gastrointestinal: normal bowel sounds, soft - Integumentary Integumentary: no rash - Neurologic Neurologic: CNII-XII intact - Musculoskeletal Musculoskeletal: gait normal, strength equal bilaterally - Psychiatric Psychiatric: A&O x's 3, appropriate affect - Labs CBC & Chem 7: 10/26/18 02:57 10/26/18 02:57 Labs: Abnormal Lab Results - Last 24 Hours (Table) 10/25/18 10/25/18 10/25/18 Range/Units 11:39 11:39 11:39 RBC (4.30-5.90) m/uL Hgb (13.0-17.5) gm/dL MCV (80.0-100.0) fL Plt Count (150-450) k/uL Neutrophils # 7.9 H (1.3-7.7) k/uL PT 12.9 H (9.0-12.0) sec INR 1.3 H (<1.2) APTT (22.0-30.0) sec Potassium 5.5 H (3.5-5.1) mmol/L Chloride 110 H (98-107) mmol/L Carbon Dioxide 20 L (22-30) mmol/L BUN 35 H (9-20) mg/dL Glucose 135 H (74-99) mg/dL C-Reactive Protein (<10.0) mg/L 10/25/18 10/26/18 10/26/18 Range/Units 15:39 02:57 02:57 RBC 3.90 L (4.30-5.90) m/uL Hgb 12.9 L (13.0-17.5) gm/dL MCV 102.8 H (80.0-100.0) fL Plt Count 140 L (150-450) k/uL Neutrophils # (1.3-7.7) k/uL PT (9.0-12.0) sec INR (<1.2) APTT 30.4 H (22.0-30.0) sec Potassium (3.5-5.1) mmol/L Chloride (98-107) mmol/L Carbon Dioxide (22-30) mmol/L BUN (9-20) mg/dL Glucose (74-99) mg/dL C-Reactive Protein 19.6 H (<10.0) mg/L 10/26/18 Range/Units 02:57 RBC (4.30-5.90) m/uL Hgb (13.0-17.5) gm/dL MCV (80.0-100.0) fL Plt Count (150-450) k/uL Neutrophils # (1.3-7.7) k/uL PT (9.0-12.0) sec INR (<1.2) APTT (22.0-30.0) sec Potassium (3.5-5.1) mmol/L Chloride (98-107) mmol/L Carbon Dioxide (22-30) mmol/L BUN 34 H (9-20) mg/dL Glucose 119 H (74-99) mg/dL C-Reactive Protein (<10.0) mg/L Assessment and Plan Plan: 1. New onset atrial flutter with rapid ventricular response. IV heparin will be transitioned to oral eliquis. IV amiodarone will be transitioned to oral. Cardiology consult appreciated. Patient may require electrocardioversion. TSH normal. 2. Acute systolic heart failure with severe cardiomyopathy most likely related to alcohol. Echocardiogram as above. Lasix 40 mg IV daily 3. Acute bronchitis. Status post IV Solu-Medrol. 4. Hypertension. Continue Zestoretic daily 5. Hyperlipidemia. 6. Alcohol abuse. CIWA protocol started. 7. DVT prophylaxis. Eliquis. 8. GI prophylaxis. Pepcid. 9. CODE STATUS: Full code. Discharge plan: home Impression and plan of care have been directed as dictated by the signing physician. Pham Cao nurse practitioner acting as scribe for signing physician. #
--- NOTE | 2018-10-26 15:30 | P.CNPUL ---
History of Present Illness Consult date: 10/26/18 Requesting physician: Nasir Ramos Reason for consult: dyspnea, chest pain Chief complaint: Shortness of breath, chest pressure History of present illness: This is a 58-year-old white male patient of Dr. Corbin, with past mental history of hypertension, daily alcohol use patient drinks half a pint of whiskey daily, ex-smoker, currently in remission, quit smoking 12 years ago, but on and off smoked less than a pack a day for 22 years. Denies any history of chronic lung problems. Not on any inhalers or oxygen on a daily basis. Patient presents the hospital on 10/25/2018 with complaints of shortness of breath, chest pressure, with no radiation, that had been going on for last 5 or 6 days and became progressively worse. He denied any cough, congestion, no fever or chills, he has had some cold sweats every night. He felt like he could not take full breaths. He was unable to walk up a flight of stairs without having to take a break. Apparently patient had been seen at the urgent care clinic diagnosed with bronchitis, and was given Medrol Dosepak, Mucinex, and antibiotics in the form of Levaquin. Patient was noted to be in a flutter with RVR with a rate of 1:30 BPM in the emergency department he was started on Cardizem drip and subsequently his blood pressure dropped to systolic in the 80s. EEG showed a flutter without acute T-wave abnormalities. BNP was elevated over 5000, initial troponin was negative. CT angiogram of the chest was negative for pulmonary embolism, small pericardial effusion, and groundglass subsegmental changes, the patient was started on heparin drip for evidence of a flutter. Cardiology evaluated the patient, echocardiogram was completed showing moderate concentric left ventricular hypertrophy, with severe global hypokinesis of LV EF of 20%. Mitral Doppler inflow pattern suggesting diastolic filling abnormality, moderate to severe mitral regurgitation, and moderate tricuspid regurgitation with right-sided pressures of 37 mmHg. There was also trivial pericardial effusion present. No leukocytosis on the blood work, with initial white blood cell count of 10.6, hemoglobin was 14.4, INR is 1.3, sodium was 140, potassium is 5.5, chloride was 110, CO2 is 20, BUN was 35, creatinine 0.87, TSH was within normal limits at 2.030, influenza screen was negative. Review of Systems All systems: negative Constitutional: Denies chills, Denies fever Eyes: denies blurred vision, denies pain Ears, nose, mouth and throat: Denies headache, Denies sore throat Cardiovascular: Reports chest pain, Reports decreased exercise tolerance, Reports dyspnea on exertion, Denies shortness of breath Respiratory: Denies cough Gastrointestinal: Denies abdominal pain, Denies diarrhea, Denies nausea, Denies vomiting Musculoskeletal: Denies myalgias Integumentary: Denies pruritus, Denies rash Neurological: Denies numbness, Denies weakness Psychiatric: Denies anxiety, Denies depression Endocrine: Denies fatigue, Denies weight change Past Medical History Past Medical History: Hyperlipidemia, Hypertension History of Any Multi-Drug Resistant Organisms: None Reported Past Surgical History: Hernia Repair Past Psychological History: No Psychological Hx Reported Smoking Status: Former smoker Past Alcohol Use History: Daily, Heavy (drinksa pint a day, last drink october 22 ) Past Drug Use History: None Reported - Past Family History Father History Unknown: Yes Mother History Unknown: Yes Medications and Allergies Home Medications Medication Instructions Recorded Confirmed Type Levofloxacin [Levaquin] 500 mg PO DAILY 10/25/18 10/25/18 History Lisinopril-Hctz 10-12.5 mg 1 tab PO DAILY 10/25/18 10/25/18 History [Zestoretic 10-12.5] Metoprolol Succinate (ER) [Toprol 50 mg PO DAILY 10/25/18 10/25/18 History Xl] guaiFENesin-DM 600/30MG [Mucinex 1 tab PO Q12HR PRN 10/25/18 10/25/18 History Dm] methylPREDNISolone Dose Pack See Taper PO DAILY 10/25/18 10/25/18 History [Medrol Dose Pack] Allergies Allergy/AdvReac Type Severity Reaction Status Date / Time Penicillins Allergy Unknown Verified 10/25/18 11:34 Physical Exam Vitals: Vital Signs Temp Pulse Pulse Pulse Resp BP BP 10/26/18 12:00 70 20 10/26/18 11:30 96.0 F L 70 20 88/65 10/26/18 08:00 104 H 20 10/26/18 07:56 96.3 F L 104 H 20 106/69 10/26/18 04:00 97.7 F 110 H 20 107/78 10/26/18 00:00 91 20 96/68 10/25/18 20:00 98.4 F 89 24 90/55 10/25/18 18:50 112 H 107/77 10/25/18 18:45 125 H 118/78 10/25/18 18:40 129 H 108/76 10/25/18 18:35 131 H 20 114/82 10/25/18 16:00 98.2 F 130 H 20 107/78 10/25/18 14:10 98.2 F 130 H 20 84/70 10/25/18 13:49 98.1 F 107 H 20 97/70 10/25/18 13:15 115 H 93/70 10/25/18 13:06 131 H 18 104/81 Pulse Ox 10/26/18 12:00 10/26/18 11:30 98 10/26/18 08:00 10/26/18 07:56 96 10/26/18 04:00 97 10/26/18 00:00 92 L 10/25/18 20:00 96 10/25/18 18:50 96 10/25/18 18:45 94 L 10/25/18 18:40 95 10/25/18 18:35 96 10/25/18 16:00 94 L 10/25/18 14:10 94 L 10/25/18 13:49 98 10/25/18 13:15 98 10/25/18 13:06 97 Intake and Output 10/25/18 10/26/18 10/26/18 22:59 06:59 14:59 Intake Total 840 157.671 621.926 Output Total 200 Balance 640 157.671 621.926 Intake: IV 40 20 10 Invasive Line 1 10 Invasive Line 2 40 20 Intake, IV Titration 137.671 375.926 Amount Amiodarone 300 mg In 250 Dextrose 5% in Water 250 ml @ 0.5 MG/MIN 25 mls/hr IV .Q10H THOMAS Rx#: [id number] Heparin Sod,Pork in 0.45% 137.671 125.926 NaCl 25,000 unit In 0.45 % NaCl 1 250ml.bag @ 8.4 UNITS/KG/HR 9.971 mls/hr IV .Q24H THOMAS Rx#: [id number] Oral 800 236 Output: Urine 200 Other: Voiding Method Urinal Urinal Urinal # Voids 2 0 # Bowel Movements 0 Weight 120.2 kg GENERAL EXAM: Alert, pleasant, 58-year-old white male on today's of oxygen, with a pulse ox of 98% comfortable in no apparent distress. HEAD: Normocephalic/atraumatic. EYES: Normal reaction of pupils, equal size. Conjunctiva pink, sclera white. NOSE: Clear with pink turbinates. THROAT: No erythema or exudates. NECK: No masses, no JVD, no thyroid enlargement, no adenopathy. CHEST: No chest wall deformity. Symmetrical expansion. LUNGS: Equal air entry with diffuse crackles and bilateral bases. CVS: Regular rate and rhythm, normal S1 and S2, no gallops, no murmurs, no rubs ABDOMEN: Soft, nontender. No hepatosplenomegaly, normal bowel sounds, no guardi ng or rigidity. EXTREMITIES: No clubbing, no edema, no cyanosis, 2+ pulses and upper and lower extremities. MUSCULOSKELETAL: Muscle strength and tone normal. SPINE: No scoliosis or deformity SKIN: No rashes CENTRAL NERVOUS SYSTEM: Alert and oriented -3. No focal deficits, tone is normal in all 4 extremities. PSYCHIATRIC: Alert and oriented -3. Appropriate affect. Intact judgment and insight. Results - Laboratory Findings CBC and BMP: 10/26/18 02:57 10/26/18 02:57 PT/INR, D-dimer PT 12.9 sec (9.0-12.0) H 10/25/18 11:39 INR 1.3 (<1.2) H 10/25/18 11:39 Abnormal lab findings: Abnormal Labs 10/25/18 10/25/18 10/25/18 11:39 11:39 11:39 RBC Hgb MCV Plt Count Neutrophils # 7.9 H PT 12.9 H INR 1.3 H APTT Potassium 5.5 H Chloride 110 H Carbon Dioxide 20 L BUN 35 H Glucose 135 H C-Reactive Protein 10/25/18 10/26/18 10/26/18 15:39 02:57 02:57 RBC 3.90 L Hgb 12.9 L MCV 102.8 H Plt Count 140 L Neutrophils # PT INR APTT 30.4 H Potassium Chloride Carbon Dioxide BUN Glucose C-Reactive Protein 19.6 H 10/26/18 10/26/18 02:57 09:41 RBC Hgb MCV Plt Count Neutrophils # PT INR APTT 39.5 H Potassium Chloride Carbon Dioxide BUN 34 H Glucose 119 H C-Reactive Protein - Diagnostic Findings Chest x-ray: report reviewed, image reviewed Additional studies: Echocardiogram reviewed, EKG reviewed. Assessment and Plan Plan: Assessment: #1. Acute dyspnea, chest pain related to acute exacerbation of congestive heart failure with systolic dysfunction #2. New onset atrial flutter with rapid ventricular response #3. Hypotension after initiation of Cardizem drip, recovered #4. Recent bronchitis, and patient was being treated on an outpatient basis with antibiotics, and steroids #5. Daily EtOH use, patient drinks half a pint to 1 pint of alcohol daily #6. Ex-smoker, quit smoking 12 years ago, does smoke 22 years less than pack a day #7. Hypertension #8. Hyperlipidemia #9. History of hernia repair #10. Small pericardial effusion seen on CAT scan Plan: Continue current medical treatment, no coughing, wheezing or chest congestion. We'll continue breathing treatments, vital signs are stable, heart rate is better controlled, patient remains in A. fib flutter. Cardiology is following. Diuretics have been started. I performed a history & physical examination of the patient and discussed their management with my nurse practitioner, Indy Vega. I reviewed the nurse practitioner's note and agree with the documented findings and plan of care. Lung sounds are positive for crackles at bilateral bases. The findings and the impression was discussed with the patient. I attest to the documentation by the nurse practitioner.
[2018-10-26] MEDS: THIAMINE 100 MG TAB PO SCH (16:49)
[2018-10-26] MEDS: AMIODARONE 200 MG TAB PO SCH (16:49)
[2018-10-26] MEDS: SODIUM CHLORIDE 0.9% 1,000 ML IV SCH (16:54)
[2018-10-26] MEDS ORDERED: AMIODARONE 200 MG TAB PO SCH (17:00)
[2018-10-27] MEDS: HYDROcodone/APAP 10-325MG 1 EACH TAB PO PRN ×3 (00:24→17:58)
[2018-10-27] MEDS: THIAMINE 100 MG TAB PO SCH ×2 (06:16→17:58)
[2018-10-27 06:32] LABS: African American GFR (CKD) >90 (>60 ml/min/1.73 sqM); Anion Gap 6 mmol/L; Blood Urea Nitrogen 24 mg/dL (9-20); Calcium 8.5 mg/dL (8.4-10.2); Carbon Dioxide 28 mmol/L (22-30); Chloride 105 mmol/L (98-107); Glucose 112 mg/dL (74-99); Magnesium 1.8 mg/dL (1.6-2.3); Sodium 139 mmol/L (137-145)
[2018-10-27] MEDS ORDERED: FUROSEMIDE 10 MG/ML 4 ML VIAL IV SCH (09:00)
[2018-10-27] MEDS: LISINOPRIL-HCTZ 10-12.5 MG 1 EACH TAB PO SCH (09:03)
[2018-10-27] MEDS: APIXABAN 5 MG TAB PO SCH ×2 (09:03→20:19)
[2018-10-27] MEDS: MULTIVITAMINS, THERA 1 EACH TAB PO SCH (09:03)
[2018-10-27] MEDS: FAMOTIDINE 20 MG TAB PO SCH (09:03)
[2018-10-27] MEDS: AMIODARONE 200 MG TAB PO SCH ×2 (09:03→20:20)
[2018-10-27] MEDS: FUROSEMIDE 40 MG TAB PO SCH (11:25)
--- NOTE | 2018-10-27 11:46 | P.PN ---
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 For the past one week or greater, he has been experiencing shortness of breath, initially exertional, subsequently short of breath most of the time. He was treated as an outpatient for possible bronchitis with no relief of symptoms he also states at night when he lies down in bed he feels his heart racing fast. His initial EKG on presentation here showed atrial flutter with a right bundle branch block pattern and rapid ventricular response. Subsequent EKG continued to show atrial flutter with a variable AV block. CTA of the chest was performed which did not reveal any evidence of pulmonary embolism, small pericardial effusion noted. Ascending aorta measures 4.4 cm. No chest x-ray performed. Blood pressure on arrival here 105/75 with a heart rate of 1:30, 97% on room air. Blood pressure this morning 106/68 with a heart rate of 108, 96% on 2 L of oxygen. Patient was initially started on Cardizem in the emergency room but became quite hypotensive, the Cardizem was discontinued and patient was initiated on IV amiodarone which she continues to be on at this time. Patient is also on IV heparin at this time. Laboratory data was reviewed, white blood cell count 8.5, hemoglobin 12.9, platelet count 140. Laboratory data on admission here, sodium 140, potassium 5.5, BUN 35 and creatinine 0.8. BNP level 5530, magnesium 2.0, troponin 0.0-7. Influenza A and B were negative. The patient, he did have a recent upper respiratory infection. 10/27/2018 Patient seen and examined this morning, sitting up in the chair at bedside. Diuresis well on IV Lasix. Overall the patient feels significantly better. Echocardiogram with Doppler study revealed an ejection fraction of less than 20%. We will discontinue his IV Lasix today,and start oral Lasix, discontinue lisinopril hydrochlorothiazide, start the patient on metoprolol 50 mg daily, start Aldactone 25 mg daily, and initiate lisinopril 5 mg daily.we'll continue to monitor the patient for another 24 -48hours Objective - Vital Signs Vital signs: Vital Signs Temp 97.8 F 10/27/18 09:00 Pulse 68 10/27/18 11:26 Resp 16 10/27/18 11:26 BP 106/75 10/27/18 11:26 Pulse Ox 97 10/27/18 11:26 Intake & Output 10/26/18 10/27/18 10/27/18 18:59 06:59 18:59 Intake Total 1051.926 240 Output Total 1250 400 Balance -198.074 -400 240 Weight 117.8 kg Intake: IV 10 Invasive Line 1 10 Intake, IV Titration 575.926 Amount Amiodarone 300 mg In 450 Dextrose 5% in Water 250 ml @ 0.5 MG/MIN 25 mls/hr IV .Q10H THOMAS Rx#: [id number] Heparin Sod,Pork in 0.45% 125.926 NaCl 25,000 unit In 0.45 % NaCl 1 250ml.bag @ 8.4 UNITS/KG/HR 9.971 mls/hr IV .Q24H THOMAS Rx#: [id number] Oral 466 240 Output: Urine 1250 400 Other: Voiding Method Urinal # Voids 2 1 # Bowel Movements 0 - Exam PHYSICAL EXAMINATION: GENERAL: 58-year-old gentleman in no acute distress at the time of my examination HEENT: Head is atraumatic, normocephalic. Pupils equal, round. Sclera anicteric. Conjunctiva are clear. Mucous membranes of the mouth are moist. Neck is supple. There is elevated jugular venous pressure. No carotid bruit is heard. HEART EXAMINATION: Heart S1 and S2 irregularly irregular CHEST EXAMINATION: Lungs reveal improvement in air entry to bilateral bases ABDOMEN: Soft, nontender. Bowel sounds are heard. No organomegaly noted. EXTREMITIES: 2+ peripheral pulses with no evidence of peripheral edema and no calf tenderness noted. NEUROLOGIC patient is awake, alert and oriented 3 . . - Labs CBC & Chem 7: 10/26/18 02:57 10/27/18 05:43 Labs: Abnormal Lab Results - Last 24 Hours (Table) 10/27/18 Range/Units 05:43 BUN 24 H (9-20) mg/dL Glucose 112 H (74-99) mg/dL Assessment and Plan Plan: Assessment and plan #1 symptoms of shortness of breath, likely secondary to congestive heart failure, LV function unknown, heart failure could be secondary to arrhythmia #2 atrial flutter, atypical, rapid ventricular response #3 hypertension #4 hyperlipidemia #5 excessive alcohol use, patient drinks at least half to 1 pint of alcohol daily and has done so for the past 20 years #6 small pericardial effusion as documented on CAT scan, sed rate was normal, C-reactive protein 19.6 Plan echocardiogram with Doppler study was reviewed which revealed an ejection fra ction of 20%. Patient will be initiated on metoprolol sesame 50 mg daily, Aldactone 25 mg daily, the hydrochlorothiazide portion of the lisinopril hydrochlorothiazide will be discontinued. IV Lasix will be discontinued and patient will be started today on oral diuretics. DNP note has been reviewed, I agree with a documented findings and plan of care. Patient was seen and examined.
[2018-10-27 14:12] LABS: Lyme IgG/IgM 0.05 Index
--- NOTE | 2018-10-27 15:57 | P.PN ---
Subjective Progress Note Date: 10/27/18 58 years old male with past medical history of hypertension, hyperlipidemia comes in with worsening shortness of breath associated with night sweats and palpitations. Patient states he was feeling unwell for the past 1 month with worsening shortness of breath in the past 1 week. He has been to the urgent care twice in the past 3 days and has been treated for bronchitis with a Z-Terry and Medrol Dosepak. Patient was noted to be in sinus tachycardia. Metoprolol was initiated by urgent care which was increased to 100 mg twice a day yesterday with no improvement. Patient is unable to do his daily activities due to increasing shortness of breath at rest. He endorses orthopnea and nocturnal postural dyspnea. Patient denies any chest pain or swelling in the lower extremity edema. Evaluation in the ER patient was tachycardic in the 130s EKG suggested regular tachycardia with bifascicular block and T-wave abnormality. Repeat EKG suggested atrial flutter with 3 :1 conduction block. CBC was unremarkable BMP suggest potassium of 5.5 chloride 110 bicarb 20 BUN of 35. Creatinine 0.87 g lucose 135. CTA was done to rule out pulmonary embolism is negative for PE. 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 Patient's presentation is concerning for myopericarditis from possible viral source. We'll get ESR, CRP repeat troponin and a stat echocardiogram. Magnesium will be drawn. Repeat BMP in the evening. Continue IV fluids at 1 25 mL per hour. We will obtain a comprehensive viral panel. Continue telemetry to observe for any irregular rhythm with a concern for V. tach. 10/26: Patient has had repeat episode of a flutter this morning when he got up to the bathroom. He is currently on IV amiodarone and IV heparin. Discussed with Dr. Sharpe and patient will be transitioned to eliquis and heparin drip discontinued. IV amiodarone to be transitioned to oral. He also may wish to pursue ECTOR and cardioversion. Patient will be started on the CIWA protocol with Ativan as he states he drinks a pint of Riki Villalobos plus more daily. His last alcohol intake was on October 22. He apparently has been a heavy drinker for more than 20 years. Patient has been afebrile, heart rate 104, blood pressure 106/69, pulse ox 96% on 2 L nasal cannula. Repeat troponin was 0.027, TSH 2.030. Influenza testing was negative. Echocardiogram reported EF of less than 20%, moderate to severe mitral regurgitation, moderate tricuspid regurgitation, mild pulmonary hypertension. Estimated right atrial pressure greater than 20 mmHg, trivial pericardial effusion. 10/27: The patient is currently off oxygen and he states his shortness of breath improving. Only when he is flat in bed is a shortness of breath worse. He has been started on Aldactone, Lasix changed to 40 mg orally daily, metoprolol succinate started. Patient has had no DTs. He states he had an episode of watery diarrhea this morning with no blood. campus monitor is a sinus rhythm. Objective - Vital Signs Vital signs: Vital Signs Temp 97.8 F 10/27/18 09:00 Pulse 68 10/27/18 11:26 Resp 16 10/27/18 11:26 BP 106/75 10/27/18 11:26 Pulse Ox 97 10/27/18 11:26 Intake & Output 10/26/18 10/27/18 10/27/18 18:59 06:59 18:59 Intake Total 1051.926 240 Output Total 1250 400 600 Balance -198.074 -400 -360 Weight 117.8 kg Intake: IV 10 Invasive Line 1 10 Intake, IV Titration 575.926 Amount Amiodarone 300 mg In 450 Dextrose 5% in Water 250 ml @ 0.5 MG/MIN 25 mls/hr IV .Q10H [facility] Rx#: [id number] Heparin Sod,Pork in 0.45% 125.926 NaCl 25,000 unit In 0.45 % NaCl 1 250ml.bag @ 8.4 UNITS/KG/HR 9.971 mls/hr IV .Q24H [facility]OMAS Rx#: [id number] Oral 466 240 Output: Urine 1250 400 600 Other: Voiding Method Urinal # Voids 2 1 # Bowel Movements 0 - Exam Review of Systems Constitutional: Denies chills, Denies fever, endorses lethargy Denies poor appetite,, Denies weight loss Eyes: denies decreased vision, denies diplopia, denies discharge, denies pain Ears: deny: decreased hearing Ears, nose, mouth and throat: Denies dental pain, Denies headache, Denies nasal discharge, Denies nose pain Cardiovascular: Denies chest pain, endorses decreased exercise tolerance, Denies edema, Denies high blood pressure, endorses irregular heart beat, endorses palpitations, endorses paroxysmal nocturnal dyspnea, endorses rapid heart beat, reports shortness of breath Respiratory: Denies congestion, endorses cough, Denies cough with sputum, reports dyspnea, Denies home oxygen, Denies wheezing Gastrointestinal: Denies abdominal pain, Denies change in bowel habits, Denies coffee ground emesis, Denies early satiety, Denies excessive gas, Denies heartburn, Denies hematemesis, Denies hematochezia, Denies loss of appetite, Denies nausea, Denies vomiting Genitourinary: Denies dysuria, Denies flank pain, Denies kidney stones, Denies menorrhagia, Denies urgency, Denies urinary frequency Musculoskeletal: Denies gait dysfunction, Denies limitation of motion, Denies morning stiffness, Denies muscle cramps Integumentary: Denies rash, Denies wounds, Denies brittle nails, Denies change in hair/nails, Denies darkening of skin Neurological: Denies balance difficulties, Denies change in speech, Denies double vision, Denies gait dysfunction, Denies loss of vision, Denies motor disturbance, Denies numbness, Denies paralysis, Denies paresthesias, Denies seizures Psychiatric: Denies anxiety, Denies depression Endocrine: Denies excessive sweating, Denies excessive thirst, Denies high blood sugars, Denies palpitations Hematologic/Lymphatic: Denies easy bruising, Denies lymphadenopathy - Constitutional General appearance: cooperative, no acute distress noted, obese - EENT Eyes: anicteric sclerae, PERRLA, normal appearance ENT: hearing grossly normal - Neck Neck: no lymphadenopathy, normal ROM, no other, no rigidity, no stridor, no thyromegaly - Respiratory Respiratory: Crackles heard on the right base, otherwise clear to auscultate no rails no wheezing heard - Cardiovascular Rhythm: Tachycardic, mild, atrial flutter Heart sounds: normal: S1, S2 Abnormal Heart Sounds: no systolic murmur, no diastolic murmur, no rub, no S3 Gallop, no S4 Gallop, no click, no other - Gastrointestinal General gastrointestinal: normal bowel sounds, soft - Integumentary Integumentary: no rash - Neurologic Neurologic: CNII-XII intact - Musculoskeletal Musculoskeletal: gait normal, strength equal bilaterally - Psychiatric Psychiatric: A&O x's 3, appropriate affect - Labs CBC & Chem 7: 10/26/18 02:57 10/27/18 05:43 Labs: Abnormal Lab Results - Last 24 Hours (Table) 10/27/18 Range/Units 05:43 BUN 24 H (9-20) mg/dL Glucose 112 H (74-99) mg/dL Assessment and Plan Plan: 1. New onset atrial flutter with rapid ventricular response. Continue eliquis and oral amiodarone. Cardiology consult appreciated. Patient may require electrocardioversion. TSH normal. 2. Acute systolic heart failure with severe cardiomyopathy most likely related to alcohol. Echocardiogram as above. Lasix changed to 40 mg orally daily, Toprol-XL 50 mg daily, Aldactone 25 mg daily, lisinopril 5 mg daily all added by cardiology 3. Acute bronchitis. Status post IV Solu-Medrol. 4. Hypertension. Continue Zestoretic daily 5. Hyperlipidemia. 6. Alcohol abuse. CIWA protocol started. 7. DVT prophylaxis. Eliquis. 8. GI prophylaxis. Pepcid. 9. CODE STATUS: Full code. Discharge plan: home most likely on Impression and plan of care have been directed as dictated by the signing physician. Pham Cao nurse practitioner acting as scribe for signing physician. #
[2018-10-27] MEDS: SPIRONOLACTONE 25 MG TAB PO SCH (16:12)
[2018-10-27] MEDS: SODIUM CHLORIDE 0.9% 1,000 ML IV SCH (20:12)
[2018-10-28 06:47] VITALS: RESP 16
[2018-10-28] MEDS: THIAMINE 100 MG TAB PO SCH (07:01)
[2018-10-28] MEDS: HYDROcodone/APAP 10-325MG 1 EACH TAB PO PRN (07:03)
[2018-10-28 07:57] VITALS: TEMP 97.2
[2018-10-28] MEDS: MULTIVITAMINS, THERA 1 EACH TAB PO SCH (08:12)
[2018-10-28] MEDS: APIXABAN 5 MG TAB PO SCH (08:12)
[2018-10-28] MEDS: FUROSEMIDE 40 MG TAB PO SCH (08:12)
[2018-10-28] MEDS: AMIODARONE 200 MG TAB PO SCH (08:12)
[2018-10-28] MEDS: SPIRONOLACTONE 25 MG TAB PO SCH (08:12)
[2018-10-28] MEDS: FAMOTIDINE 20 MG TAB PO SCH (08:12)
[2018-10-28] MEDS ORDERED: LISINOPRIL 5 MG TAB PO SCH (09:00)
[2018-10-28] MEDS ORDERED: METOPROLOL SUCCINATE (ER) 50 MG TAB.ER.24H PO SCH (09:00)
--- NOTE | 2018-10-28 11:55 | P.PN ---
Subjective This is Gi Osullivan PA-C dictating a progress note on this patient The patient was interviewed and examined by me IMPRESSION / ASSESSMENT: Symptomatic Atrial flutter with RVR, converted to normal sinus rhythm Newly detected dilated cardiomyopathy Newly detected Systolic heart failure with reduced ejection fraction Social history alcohol dependency PLAN: Reduce amiodarone to 400 mg once daily, we will stop amiodarone completely after one month Continue Lasix 40 mg daily, continue lisinopril 5 mg daily, continue metoprolol succinate 50 mg daily continue Aldactone 25 mg daily Patient can go home today in follow-up in the office within 1 week, further cardiac management and testing thereafter HPI/interval history Patient is a 58-year-old male who is admitted for shortness of breath. He was found to be in atrial flutter with RVR. He was initially treated with Cardizem, but became hypotensive, so the Cardizem was discontinued and he was started on IV amiodarone. He was also found to have an EF of less than 20%. He was diuresed with IV Lasix which was changed to by mouth Lasix yesterday. He converted to sinus rhythm yesterday. She feels much better today. Denies any chest pain, palpitations, orthopnea, PND, or lower extremity edema. EXAMINATION Temperature 97.2F, pulse 75, regular, respirations 16, blood pressure 131/72, oxygen 96% on room air On exam his heart sounds are normal, regular, no murmurs appreciated Lungs clear to auscultation bilaterally No elevated JVD No lower extremity edema REVIEW OF LABS, ECG Potassium 4.0, BUN 24, creatinine 0.93, troponin borderline, TSH 2.0 Viral serology pending Echo shows mildly dilated LV, moderate concentric LVH, severe global hypokinesis, EF less than 20% Objective - Vital Signs Vital signs: Vital Signs Temp 97.2 F L 10/28/18 07:53 Pulse 75 10/28/18 07:53 Resp 16 10/28/18 07:53 BP 131/72 10/28/18 07:53 Pulse Ox 96 10/28/18 07:53 Intake & Output 10/27/18 10/28/18 10/28/18 18:59 06:59 18:59 Intake Total 1044 720 240 Output Total 600 550 500 Balance 444 170 -260 Weight 115.9 kg Intake: Oral 1044 720 240 Output: Urine 600 550 500 Other: Voiding Method Urinal Urinal # Voids 4 # Bowel Movements 1 - Labs CBC & Chem 7: 10/26/18 02:57 10/27/18 05:43
[2018-10-28 12:37] VITALS: BP 114/79; PULSE 67
--- NOTE | 2018-10-28 13:02 | P.DS ---
Providers Date of admission: 10/25/18 13:01 Attending physician: Nasir Ramos MD Consults: 10/25/18 13:00 Consult Physician Routine Consulting Provider: Yoel Clemens Consult Reason/Comments: persistent tachycardia, elevated BNP Do you want consulting provider notified?: Yes 10/25/18 20:17 Consult Physician Routine Consulting Provider: Britt Sanchez Consult Reason/Comments: ICU Management Do you want consulting provider notified?: Yes Primary care physician: [facility] Course: 58 years old male with past medical history of hypertension, hyperlipidemia comes in with worsening shortness of breath associated with night sweats and palpitations. Patient states he was feeling unwell for the past 1 month with worsening shortness of breath in the past 1 week. He has been to the urgent care twice in the past 3 days and has been treated for bronchitis with a Z-Terry and Medrol Dosepak. Patient was noted to be in sinus tachycardia. Metoprolol was initiated by urgent care which was increased to 100 mg twice a day yesterday with no improvement. Patient is unable to do his daily activities due to increasing shortness of breath at rest. He endorses orthopnea and no cturnal postural dyspnea. Patient denies any chest pain or swelling in the lower extremity edema. Evaluation in the ER patient was tachycardic in the 130s EKG suggested regular tachycardia with bifascicular block and T-wave abnormality. Repeat EKG suggested atrial flutter with 3 :1 conduction block. CBC was unremarkable BMP suggest potassium of 5.5 chloride 110 bicarb 20 BUN of 35. Creatinine 0.87 glucose 135. CTA was done to rule out pulmonary embolism is negative for PE. 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 Patient's presentation is concerning for myopericarditis from possible viral source. We'll get ESR, CRP repeat troponin and a stat echocardiogram. Magnesium will be drawn. Repeat BMP in the evening. Continue IV fluids at 1 25 mL per hour. We will obtain a comprehensive viral panel. Continue telemetry to observe for any irregular rhythm with a concern for V. tach. 10/26: Patient has had repeat episode of a flutter this morning when he got up to the bathroom. He is currently on IV amiodarone and IV heparin. Discussed with Dr. Sharpe and patient will be transitioned to eliquis and heparin drip discontinued. IV amiodarone to be transitioned to oral. He also may wish to pursue ECTOR and cardioversion. Patient will be started on the CIWA protocol with Ativan as he states he drinks a pint of Riki Villalobos plus more daily. His last alcohol intake was on October 22. He apparently has been a heavy drinker for more than 20 years. Patient has been afebrile, heart rate 104, blood pressure 106/69, pulse ox 96% on 2 L nasal cannula. Repeat troponin was 0.027, TSH 2.030. Influenza testing was negative. Echocardiogram reported EF of less than 20%, moderate to severe mitral regurgitation, moderate tricuspid regurgitation, mild pulmonary hypertension. Estimated right atrial pressure greater than 20 mmHg, trivial pericardial effusion. 10/27: The patient is currently off oxygen and he states his shortness of breath improving. Only when he is flat in bed is a shortness of breath worse. He has been started on Aldactone, Lasix changed to 40 mg orally daily, metoprolol succinate started. Patient has had no DTs. He states he had an episode of watery diarrhea this morning with no blood. monitor worker is a sinus rhythm. 10/28 patient examined bedside so complaints of some arm paroxysmal nocturnal orthopnea but denies any shortness of breath chest pain and breathing difficulty on ambulation. Patient denies any dizziness on ambulation. He denies any palpitations. Heart rate is controlled at 75 appears regular blood pressure 131/72 patient is able to tolerate although oral medication. bridge ironworker helper will help patient with alcohol anonymous group information. Patient will be initiated on acamprosate 333 milligrams by mouth 3 times a day and for follow-up with primary care and cardiology as outpatient Discharge diagnoses 1. New onset atrial flutter with rapid ventricular response. 2. Acute systolic heart failure with severe dilated cardiomyopathy most likely related to alcohol. 3. Acute bronchitis 4. Hypertension. 5. Hyperlipidemia. 6. Alcohol abuse CC a copy of discharge Dr. Montanez Patient Condition at Discharge: Fair Plan - Discharge Summary Discharge Rx Participant: No New Discharge Prescriptions: New Spironolactone [Aldactone] 25 mg PO DAILY #30 tab Acamprosate Calcium [Campral] 333 mg PO TID #90 tablet. Apixaban [Eliquis] 5 mg PO BID #60 tab Furosemide [Lasix] 40 mg PO DAILY #30 tab Metoprolol Succinate (ER) [Toprol XL] 50 mg PO DAILY #30 tab.er.24h Thiamine [Vitamin B-1] 100 mg PO DAILY #30 tab Lisinopril [Zestril] 5 mg PO DAILY #30 tab Amiodarone [Cordarone] 400 mg PO DAILY #30 tab Continue guaiFENesin-DM 600/30MG [Mucinex Dm] 1 tab PO Q12HR PRN PRN Reason: Cold Symptoms Metoprolol Succinate (ER) [Toprol XL] 50 mg PO DAILY methylPREDNISolone Dose Pack [Medrol Dose Pack] See Taper PO DAILY Discontinued Lisinopril-Hctz 10-12.5 mg [Zestoretic 10-12.5] 1 tab PO DAILY Levofloxacin [Levaquin] 500 mg PO DAILY Discharge Medication List Metoprolol Succinate (ER) [Toprol XL] 50 mg PO DAILY 10/25/18 [History] guaiFENesin-DM 600/30MG [Mucinex Dm] 1 tab PO Q12HR PRN 10/25/18 [History] methylPREDNISolone Dose Pack [Medrol Dose Pack] See Taper PO DAILY 10/25/18 [History] Acamprosate Calcium [Campral] 333 mg PO TID #90 tablet. 10/28/18 [Rx] Amiodarone [Cordarone] 400 mg PO DAILY #30 tab 10/28/18 [Rx] Apixaban [Eliquis] 5 mg PO BID #60 tab 10/28/18 [Rx] Furosemide [Lasix] 40 mg PO DAILY #30 tab 10/28/18 [Rx] Lisinopril [Zestril] 5 mg PO DAILY #30 tab 10/28/18 [Rx] Metoprolol Succinate (ER) [Toprol XL] 50 mg PO DAILY #30 tab.er.24h 10/28/18 [Rx] Spironolactone [Aldactone] 25 mg PO DAILY #30 tab 10/28/18 [Rx] Thiamine [Vitamin B-1] 100 mg PO DAILY #30 tab 10/28/18 [Rx] Follow up Appointment(s)/Referral(s): Kevin Sharpe MD [STAFF PHYSICIAN] - 11/04/18 3:30 pm ([facility] follow up with Dr. Sharpe/Gi Osullivan/Andree Hamilton) Gabino Ireland DO [Doctor of Osteopathic Medicine] - 11/18/18 10:00 am (Pulmonary) Ozzie Corbin DO [Primary Care Provider] - 1-2 days (Office will call with follow up appointment. ) Patient Instructions/Handouts: A-fib (Atrial Fibrillation) (DC), Abuse of Alcohol (DC), Safe Use of Anticoagulants (DC) Activity/Diet/Wound Care/Special Instructions: pt is eligible for $10/mo [employer], coupon given to pt
[2018-10-28] MEDS ORDERED: ACAMPROSATE CALCIUM 333 MG TABLET.DR PO SCH (16:00)
[2018-10-29 12:32] LABS: Parvovirus B-19 IgG Antibodies 0.13 INDEX (<=0.90); Parvovirus B-19 IgM Antibodies 0.12 INDEX (<=0.90)
== END 2018-10-28 13:58 | disposition home or self-care (01) | DRG 308 ==
LOC: EC 11:09 → 3SCARD 13:01
PROVIDERS: ADMIT Internal Medicine; ATTEND Internal Medicine
DX: I48.4 Atypical atrial flutter (principal); I50.23 Acute on chronic systolic (congestive) heart failure; I31.3 Pericardial effusion (noninflammatory); I27.20 Pulmonary hypertension, unspecified; I11.0 Hypertensive heart disease with heart failure; I08.1 Rheumatic disorders of both mitral and tricuspid valves; I95.9 Hypotension, unspecified; I42.0 Dilated cardiomyopathy; I42.6 Alcoholic cardiomyopathy; F10.20 Alcohol dependence, uncomplicated; R19.7 Diarrhea, unspecified; J20.9 Acute bronchitis, unspecified; I44.30 Unspecified atrioventricular block; E78.5 Hyperlipidemia, unspecified; I45.2 Bifascicular block; E66.9 Obesity, unspecified; Z68.35 Body mass index [BMI] 35.0-35.9, adult; Z79.899 Other long term (current) drug therapy; Z87.891 Personal history of nicotine dependence; Z88.0 Allergy status to penicillin
CPT/HCPCS: 36415; 71275; 80048; 83735; 83880; 84443; 84484; 85025; 85610; 85652; 85730; 86140; 86618; 86747; 86850; 86900; 86901; 87252; 87498; 87502; 87529; 87634; 87798; 93005; 93306; 96374; 99285

== ENCOUNTER → 2020-08-16 | Outpatient (CLI) | payer OTHER ==
--- NOTE | 2020-08-16 09:37 | CT ---
EXAMINATION TYPE: CT chest w con DATE OF EXAM: 08/16/2020 COMPARISON: 10/25/2018 HISTORY: H/O ablasion of heart, aortic aneurysm. CT DLP: 653.5 mGycm Automated exposure control for dose reduction was used. TECHNIQUE: CT scan of the chest is performed with IV Contrast, patient injected with 100 mL of Isovue 370. MIP Images are created on CT scanner and reviewed. 3D reconstructed images are created on an independent workstation and reviewed. FINDINGS: LUNGS: The lungs are grossly clear, there is no concerning parenchymal mass or nodule identified. T here is no pleural effusion or pneumothorax seen. The tracheobronchial tree is patent. Tiny blebs ar e seen in the right apex compatible COPD. MEDIASTINUM: No diagnostic evidence of pulmonary. Atherosclerotic change aorta. Cardiomegaly and no s ignificant pericardial effusion is. Coronary artery mild calcification seen proximal ascending aorta measures 4.2 cm compatible with mild aneurysmal dilation. Calcification in the aortic root and valve. Tiny air bubble within the right ventricle likely iatrogenic from venous injection. OTHER: Hypertrophic and degenerative change of the spine. Subcentimeter anterior upper pole left sarahi al lesion too small but statistically most likely related to simple cyst. IMPRESSION: 1 given differences in technique. Findings are stable compatible with mild aneurysmal di lation ascending aorta measuring 4.2 cm
== END | disposition home or self-care (01) ==
LOC: RADCTMAIN 08:20
PROVIDERS: ATTEND Family Medicine
DX: I71.4 Abdominal aortic aneurysm, without rupture (principal)
CPT/HCPCS: 71260; Q9967

== ENCOUNTER → 2022-05-08 | Outpatient (CLI) | payer OTHER ==
--- NOTE | 2022-05-08 16:42 | P.SLEEP ---
History of Present Illness DATE: 05/08/2022 CONSULTATION/NEW PATIENT EVALUATION HISTORY OF PRESENT ILLNESS/SLEEP-WAKE EVALUATION: 62-year-old gentleman had been evaluated in the sleep center for obstructive sleep apnea hypopnea syndrome. Patient have been diagnosed with obstructive sleep apnea in another institution about 3 years ago. At that time he had the test at home, but she never had any sensor in his nose or mouth, or oximeter at that time as he remember. He was stated to his CPAP, but was not able to use it and stop using it close to 1 year ago. I checked CPAP unit, is in AutoPap regimen range of pressure 8-20, EPR is off. Patient cannot exhale while starting to use CPAP unit. SLEEP SCHEDULE: Usually sleep schedule from 9 PM to 6 AM on weekdays and from 11 PM to 9 AM on weekend. FALLING ASLEEP: No problems with falling asleep, although patient has TV set and bedroom. DURING SLEEP: She has loud snoring, episodes of stop breathing during the sleep, multiple awakenings from sleep 4 times with 3 episodes of nocturia. No history of hypnogogical hallucinations, sleep paralysis, or cataplexy. DURING THE DAY/WAKE STATE: In the morning patient wake up tired, has problems with memory, concentration, irritability.. Atkinson sleepiness scale is increased to 10. Usually patient doesn't take naps. PAST MEDICAL HISTORY: Hypertension, atrial fibrillation, status post cardioversion, acid reflux, hyperlipidemia. PAST SURGICAL HISTORY: Tonsillectomy. MEDICATIONS: Eliquis 5 mg twice a day, metoprolol 100 mg twice a day, olmesartan 25 mg once a day. SOCIAL HISTORY: Negative for smoking, alcohol consumption occasional. FAMILY HISTORY: Lung cancer, snoring. REVIEW OF SYSTEMS: Snoring, multiple awakenings from sleep, episodes of stop breathing during sleep. No fevers. No double vision. No recent chest pain. No shortness of breath. No abdominal pain. No bleeding episodes. No blood in urine. No seizure episodes. PHYSICAL EXAMINATION: GENERAL: A pleasant patient without any distress. VITAL SIGNS: BP 112/71, HR 111, RR 18, weight 247.2 pounds, height 5 foot 8-3/4 inches, body mass index 36.7. HEENT: PERRLA, EOMI. Evaluation of oropharynx showed tongue protrudes midline, low position of soft palate Mallampati 34. NECK: Supple. No JVD. Thyroid is not palpable. 19-3/4 inches in circumference. LUNGS: Clear to percussion and to auscultation. Good air exchange. No wheezing or rhonchi. HEART: S1, S2 regular. No murmurs, gallops or rubs. ABDOMEN: Soft and nontender. Bowel sounds are present. No organomegaly appreci ated. Obese EXTREMITIES: No clubbing or cyanosis. PECAN MALLOW DIPPER: Awake, alert, and oriented x3. Cranial nerves 2 to 7 intact. There is no fasciculation or atrophy noted. No focal deficits observed. ASSESSMENT: 1. Loud snoring, multiple awakenings from sleep, low position of soft palate Mallampati 34, wide neck 19 and three-quarter inches in circumference, sleepiness Atkinson sleepiness scale increased to 10. Obstructive sleep apnea hypopnea syndrome. 2. Obesity body mass index 36.7. 3. Hypertension. 4. History of atrial fibrillation status post cardioversion. 5 hyperlipidemia. 6 . Acid reflux. 7. Status post tonsillectomy. I adjusted AutoPAP unit to the pressure 511 centimeters of water, but patient still had difficulties with exhalation. I adjusted pressure down to the level of 4-11 cm of water, 4 cm of water is lowest level which is available on CPAP unit. PLAN: 1. Home sleep apnea test. 2. Patient will restart to use his CPAP equipment. 3. Preferable position during sleep on the side. 4. No driving if patient feels any sleepiness. Patient is aware of civil and criminal liability for unsafe driving. 5. Sleep hygiene with regular sleep time for at least 7.5-8 hours. 6. Watching and losing weight. 7. Follow-up visit in 2 months. 8. Prescription for all necessary CPAP supplies after reading home sleep apnea test. Thank you very much for referring this patient for consultation. Sincerely, Colton Munoz MD, PhD, FAASM. Diplomat of [employer], Sleep Medicine Board by [employer] [facility] [place] Past Medical History Past Medical History: Hyperlipidemia, Hypertension History of Any Multi-Drug Resistant Organisms: None Reported Past Surgical History: Hernia Repair Past Psychological History: No Psychological Hx Reported Past Alcohol Use History: Daily, Heavy (drinksa pint a day, last drink october 22 ) Past Drug Use History: None Reported - Past Family History Father History Unknown: Yes Mother History Unknown: Yes Medications and Allergies Home Medications Medication Instructions Recorded Confirmed Type Metoprolol Succinate (ER) [Toprol 50 mg PO DAILY 10/25/18 10/25/18 History XL] guaiFENesin-DM 600/30MG [Mucinex 1 tab PO Q12HR PRN 10/25/18 10/25/18 History Dm] methylPREDNISolone Dose Pack See Taper PO DAILY 10/25/18 10/25/18 History [Medrol Dose Pack] Acamprosate Calcium [Campral] 333 mg PO TID #90 tablet.dr 10/28/18 Rx Amiodarone [Cordarone] 400 mg PO DAILY #30 tab 10/28/18 Rx Apixaban [Eliquis] 5 mg PO BID #60 tab 10/28/18 Rx Furosemide [Lasix] 40 mg PO DAILY #30 tab 10/28/18 Rx Metoprolol Succinate (ER) [Toprol 50 mg PO DAILY #30 tab.er.24h 10/28/18 Rx XL] Spironolactone [Aldactone] 25 mg PO DAILY #30 tab 10/28/18 Rx Thiamine [Vitamin B-1] 100 mg PO DAILY #30 tab 10/28/18 Rx lisinopriL [Zestril] 5 mg PO DAILY #30 tab 10/28/18 Rx Allergies Allergy/AdvReac Type Severity Reaction Status Date / Time Penicillins Allergy Unknown Verified 10/25/18 11:34 Sleep Note - Sleep Note Sleep Note: Temperature: Pulse Rate: Respiratory Rate: Blood Pressure: SpO2: Height: Weight: BMI: Neck Circumference:
== END ==
LOC: SLEEP 14:48
PROVIDERS: ATTEND Internal Medicine
DX: G47.33 Obstructive sleep apnea (adult) (pediatric) (principal); E66.9 Obesity, unspecified; Z68.36 Body mass index [BMI] 36.0-36.9, adult; I10 Essential (primary) hypertension; E78.5 Hyperlipidemia, unspecified; K21.9 Gastro-esophageal reflux disease without esophagitis; Z95.810 Presence of automatic (implantable) cardiac defibrillator; Z90.89 Acquired absence of other organs; Z88.0 Allergy status to penicillin; Z87.891 Personal history of nicotine dependence
CPT/HCPCS: 99211